=== PATIENT | male | born 1975 | race Caucasian/White ===

== ENCOUNTER 2017-10-19 10:50 | Outpatient (CLI) | payer OTHER | END 2017-10-19 10:51 | disposition home or self-care (01) | LOC: SC 10:50 | PROVIDERS: ATTEND Internal Medicine Pulmonary Disease | DX: G47.30 Sleep apnea, unspecified (principal); G47.10 Hypersomnia, unspecified; R51 Headache; R06.83 Snoring | CPT/HCPCS: 99203; 99212 ==

== ENCOUNTER 2018-03-08 10:09 | Outpatient (CLI) | payer OTHER | END 2018-03-08 10:10 | disposition home or self-care (01) | LOC: SC 10:09 | PROVIDERS: ATTEND Internal Medicine Pulmonary Disease | DX: G47.30 Sleep apnea, unspecified (principal); G47.10 Hypersomnia, unspecified; R06.83 Snoring; G47.8 Other sleep disorders | CPT/HCPCS: 99212; 99213 ==

== ENCOUNTER 2018-04-04 20:19 | Outpatient (CLI) | payer OTHER | END 2018-04-04 20:20 | disposition home or self-care (01) | LOC: SC 20:19 | PROVIDERS: ATTEND Internal Medicine Pulmonary Disease | DX: G47.30 Sleep apnea, unspecified (principal); G47.10 Hypersomnia, unspecified | CPT/HCPCS: 95810 ==

== ENCOUNTER 2018-04-29 14:10 | Outpatient (CLI) | payer OTHER ==
[2018-04-29] MEDS ORDERED: IOTHALAMATE MEGLUMINE 50 ML VIAL ONE (14:17)
[2018-04-29] MEDS ORDERED: GADOPENTETATE DIMEGLUMINE 5 ML VIAL IVP ONE ×2 (14:18→15:51)
[2018-04-29] MEDS ORDERED: IOTHALAMATE MEGLUMINE 50 ML VIAL IVP ONE (15:51)
[2018-04-29] MEDS ORDERED: BUFFERED LIDOCAINE 10 ML SYRINGE IU ONE (15:51)
--- NOTE | 2018-04-29 17:05 | XRAY Report ---
Reason: RIGHT SHOULDER PAIN Procedure Date: 04/29/2018 Accession Number: [id number] / [id number] Procedure: FL - Arthrogram Needle Placement CPT Code: FULL RESULT: EXAM: RIGHT SHOULDER ARTHROGRAPHIC INJECTION WITH FLUOROSCOPIC GUIDANCE EXAM DATE: 04/29/2018 02:43 PM. CLINICAL HISTORY: RIGHT SHOULDER PAIN. COMPARISON: None. TECHNIQUE: The risks, benefits, and alternatives of the procedure were discussed with the patient. All questions were answered. Written and verbal consent were obtained. The right glenohumeral joint was marked under fluoroscopy and prepped and draped in a sterile manner. Local anesthesia was performed with 1% lidocaine. A 22-gauge needle was then inserted into the glenohumeral joint. 12 mL of a solution containing 1% lidocaine, iodinated contrast, and a 1:200 dilution of gadolinium contrast was then injected. The needle was removed without immediate complication. Other: None. Fluoroscopy Time: 1 minute 32 seconds. Number of Images: 2. FINDINGS: Bones and joints: No fracture or subluxation. Injection: Fluoroscopic images demonstrate needle placement and contrast in the glenohumeral joint. IMPRESSION: Successful fluoroscopically guided arthrographic injection of the right shoulder. [facility]
--- NOTE | 2018-04-30 10:32 | MRI Report ---
Reason: RIGHT SHOULDER PAIN Procedure Date: 04/29/2018 Accession Number: [id number] / [id number] Procedure: MRI - Arthrogram Shoulder RT CPT Code: FULL RESULT: EXAM: RIGHT SHOULDER MRI ARTHROGRAM WITH CONTRAST EXAM DATE: 04/29/2018 04:06 PM. CLINICAL HISTORY: Right shoulder pain. Possible biceps tear. COMPARISON: None. TECHNIQUE: Multiplanar, multisequence T1-weighted and fluid-sensitive sequences of the shoulder after an arthrographic injection of dilute gadolinium, dictated under a separate exam. Other: None. FINDINGS: Acromioclavicular Region: The acromion is type 2. Mild acromioclavicular osteoarthropathy is evidenced by bony hypertrophy and distal clavicle periarticular cyst formation. The coracoacromial and coracoclavicular ligaments are intact. A minimal amount of fluid is in the subacromial/subdeltoid bursa. Glenohumeral Region: No subluxation. No loose bodies. The articular cartilage is unremarkable. The glenohumeral ligaments and joint capsule are unremarkable. Bone Marrow: No fracture, marrow edema or bone lesions. Labrum: The superior labrum has a partial-thickness tear (series 601, image 12). Biceps Tendon: The long head of the biceps tendon and biceps leonel are intact. Musculature/Rotator Cuff: The supraspinatus tendon demonstrates partial-thickness tearing of a 6 mm wide segment of the anterior tendon. This bursal-sided tear is 6 mm in length and 50% in thickness (601/17). The subscapularis, infraspinatus, and teres minor tendons are intact. No edema or fatty atrophy. Other: The subcutaneous tissues are unremarkable. IMPRESSION: 1. Mild acromioclavicular osteoarthropathy. 2. Minimal subacromial/subdeltoid bursitis. 3. Partial-thickness tear of the superior labrum. 4. Partial bursal-sided tear of the anterior supraspinatus tendon. [facility] MUSCULOSKELETAL RADIOLOGY SECTION
== END 2018-04-29 14:11 | disposition home or self-care (01) ==
LOC: DI 14:10
PROVIDERS: ATTEND Student in an Organized Health Care Education/Training Program
DX: M25.511 Pain in right shoulder (principal); M19.011 Primary osteoarthritis, right shoulder; M75.51 Bursitis of right shoulder; S43.491A Other sprain of right shoulder joint, initial encounter; M75.101 Unspecified rotator cuff tear or rupture of right shoulder, not specified as traumatic
CPT/HCPCS: 23350; 73222; 77002; Q9961

== ENCOUNTER 2018-05-04 11:16 | Outpatient (CLI) | payer OTHER | END 2018-05-04 11:17 | disposition home or self-care (01) | LOC: SC 11:16 | PROVIDERS: ATTEND Internal Medicine Pulmonary Disease | DX: R06.83 Snoring (principal) | CPT/HCPCS: 99212 ==